=== PATIENT | male | born 2000 | race Caucasian/White ===

== ENCOUNTER 2022-08-22 21:57 | Emergency (ER) | payer OTHER ==
[2022-08-23 01:45] LABS: URINE BILIRUBIN - DIPSTICK NEGATIVE (NEGATIVE); URINE BLOOD DIPSTICK TRACE-INTACT (NEGATIVE); URINE COLOR YELLOW; URINE GLUCOSE - DIPSTICK NEGATIVE (NEGATIVE); URINE KETONE NEGATIVE (NEGATIVE); URINE LEUK ESTERASE TRACE (NEGATIVE); URINE PH 6.5 (4.5-8.0); URINE PROTEIN - DIPSTICK NEGATIVE (NEG-TRACE); URINE UROBILINOGEN - DIPSTICK 0.2 E.U./dL (0.2)
[2022-08-23 01:47] LABS: URINE NITRITE - DIPSTICK NEGATIVE (Negative)
[2022-08-23 02:00] VITALS: BP 126/87
== END 2022-08-23 02:00 | disposition home or self-care (01) | DRG 728 ==
LOC: ED 21:57
PROVIDERS: Emergency Medicine
DX: A51.0 Primary genital syphilis (principal)
CPT/HCPCS: J0561